=== PATIENT | female | born 1985 | race Caucasian/White ===

== ENCOUNTER 2025-03-05 13:27 | Emergency (ER) | payer OTHER, SELFPAY ==
[2025-03-05 13:38] VITALS: BP 157/85; BP 162/102; PULSE 85; RESP 16; O2SAT 97; O2SAT 98; BMI 21.4
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
[2025-03-05 14:36] VITALS: BP 157/85; PULSE 85; RESP 16; TEMP 36.3; O2SAT 97
== END 2025-03-05 14:37 | disposition home or self-care (01) ==
LOC: HO.ED 14:30
PROVIDERS: Emergency Provider Emergency Medicine Emergency Medical Services
DX: S16.1XXA Strain of muscle, fascia and tendon at neck level, initial encounter (principal); V43.53XA Car driver injured in collision with pick-up truck in traffic accident, initial encounter; Y93.9 Activity, unspecified; Y92.9 Unspecified place or not applicable; Y99.9 Unspecified external cause status
CPT/HCPCS: 99283